=== PATIENT | female | born 1980 | race Two or more races ===

== ENCOUNTER 2023-04-17 14:42 | Emergency (ER) | payer OTHER ==
[2023-04-17 16:00] LABS: CORONAVIRUS 229E-RESP PCR NOT DETECTED; CORONAVIRUS HKU1-RESP PCR NOT DETECTED; CORONAVIRUS NL63-RESP PCR NOT DETECTED; CORONAVIRUS OC43-RESP PCR NOT DETECTED; HUMAN METAPNEUMOVIRUS NOT DETECTED; INFLUENZA A- RESP PCR PANEL NOT DETECTED; RHINOVIRUS/ENTEROVIRUS DETECTED; SARS-CoV-2 -RESP PCR PANEL NOT DETECTED
[2023-04-17 16:01] LABS: B. PARAPERTUSSIS- RESP PCR PAN NOT DETECTED; B. PERTUSSIS- RESP PCR PANEL NOT DETECTED; C. PNEUMONIAE- RESP PCR PANEL NOT DETECTED; INFLUENZA B - RESP PCR PANEL NOT DETECTED; M. PNEUMONIAE- RESP PCR PANEL NOT DETECTED; PARAINFLUENZA VIRUS 1 NOT DETECTED; PARAINFLUENZA VIRUS 2 NOT DETECTED; PARAINFLUENZA VIRUS 3 NOT DETECTED; PARAINFLUENZA VIRUS 4 NOT DETECTED; RSV- RESP PCR PANEL NOT DETECTED
[2023-04-17] MEDS ORDERED: DEXAMETHASONE 10 MG/ML VIAL PO STA (16:07)
[2023-04-17] MEDS ORDERED: CHERRY SYRUP 10 ML UDC PO ONE (16:07)
--- NOTE | 2023-04-17 16:10 | ED Physician Documentation ---
PD HPI HEENT - Stated complaint Stated Complaint: EAR PX,RINGING,GARG,NAUSEA - Chief complaint Chief Complaint: General - History obtained from History obtained from: Patient - History of Present Illness Timing - onset: How many days ago (5) Timing - duration: Days (5) Timing - details: Gradual onset, Still present Location: Right ear, Sinuses, Throat Improves: Medication Worsens: Swalllowing Associated symptoms: Fever, Congestion, Rhinorrhea, Headache, Cough Similar symptoms before: Diagnosis (COVID) Recently seen: Not recently seen - Additional information Additional information: Previously well 43-year-old Judith Plummer has developed a cough congestion and sore throat. She had symptoms beginning about 5 days ago and she has now had worsening ear pain on the right side as well as a sore throat worse on the right. She is having some trouble swallowing even. She is to have dry cough. She had symptoms similar to this when she had COVID. Review of Systems Constitutional: reports: Chills. denies: Fever Eyes: denies: Decreased vision, Photophobia Ears: reports: Loss of hearing, Ear pain, Tinnitus/ringing Nose: reports: Rhinorrhea / runny nose, Congestion Throat: reports: Sore throat Cardiac: denies: Chest pain / pressure, Palpitations Respiratory: reports: Cough. denies: Dyspnea GI: denies: Nausea, Vomiting, Constipation, Diarrhea : denies: Dysuria, Frequency PD PAST MEDICAL HISTORY - Present Medications Home Medications: Ambulatory Orders Medication Instructions Recorded Confirmed Amox/Clav 875/125 [Augmentin] 1 each PO Q12H #20 tablet 04/17/23 - Allergies Allergies/Adverse Reactions: Allergies Allergy/AdvReac Type Severity Reaction Status Date / Time Penicillins Allergy Rash Verified 04/17/23 14:57 PD ED PE NORMAL - Vitals Vital signs reviewed: Yes (hypertensive mild ) - General General: Alert and oriented X 3, No acute distress, Well developed/nourished - HEENT HEENT: Atraumatic, PERRL, EOMI, Other (The right TM is inflamed and blistered. ) - Neck Neck: Supple, no meningeal sign, No bony TTP - Cardiac Cardiac: RRR, No murmur - Respiratory Respiratory: No respiratory distress, Clear bilaterally - Abdomen Abdomen: Soft, Non tender - Back Back: No CVA TTP, No spinal TTP - Derm Derm: Normal color, Warm and dry, No rash - Extremities Extremities: No deformity, No edema - Neuro Neuro: Alert and oriented X 3, wire straightener 2-12 intact, No motor deficit, No sensory deficit, Normal speech Eye Opening: Spontaneous Motor: Obeys Commands Verbal: Oriented GCS Score: 15 - Psych Psych: Normal mood, Normal affect Results - Vitals Vitals: Vital Signs - 24 hr 04/17/23 14:57 Temperature 36.6 C Heart Rate 81 Respiratory 20 Rate Blood Pressure 134/81 H O2 Saturation 99 Oxygen O2 Source Room air - Labs Labs: Laboratory Tests 04/17/23 15:05 Nasal Adenovirus (PCR) NOT DETECTED Nasal B. parapertussis DNA (PCR) NOT DETECTED Nasal Coronavir 229E PCR NOT DETECTED Nasal Coronavir HKU1 PCR NOT DETECTED Nasal Coronavir NL63 PCR NOT DETECTED Nasal Coronavir OC43 PCR NOT DETECTED Nasal Enterovir/Rhinovir PCR DETECTED A Nasal Influenza B PCR NOT DETECTED Nasal Influenza A PCR NOT DETECTED Nasal Parainfluen 1 PCR NOT DETECTED Nasal Parainfluen 2 PCR NOT DETECTED Nasal Parainfluen 3 PCR NOT DETECTED Nasal Parainfluen 4 PCR NOT DETECTED Nasal RSV (PCR) NOT DETECTED Nasal B.pertussis DNA PCR NOT DETECTED Nasal C.pneumoniae (PCR) NOT DETECTED [place] Human Metapneumo PCR NOT DETECTED Nasal M.pneumoniae (PCR) NOT DETECTED Nasal SARS-CoV-2 (PCR) NOT DETECTED PD Medical Decision Making - ED course Complexity details: considered differential, d/w patient Reviewed Lab Results: We obtained a nasal swab for 23 viruses and found that the swab was positive for the DNA of rhinovirus.My interpretation of this is the patient is likely suffering from the effects of rhinovirus ED course: 43-year-old female presents to the emergency department with upper respiratory tract symptoms is positive for Rhinovirus she has had a change in her condition to having worsening right ear pain and on examination has an obvious otitis on the right. This appears to be a secondary bacterial infection and this is treated. She is administered dexamethasone 10 mg orally we will place her on a course of Augmentin. Departure - Departure Disposition: 01 Home, Self Care Clinical Impression: Rhinovirus infection Otitis media Qualifiers: Otitis media type: suppurative Chronicity: acute Laterality: right Recurrence: not specified as recurrent Spontaneous tympanic membrane rupture: without spontaneous rupture Qualified Code(s): H66.001 - Acute suppurative otitis media without spontaneous rupture of ear drum, right ear Condition: Stable Instructions: ED Otitis Media Acute Adult, Cold Virus Follow-Up: AMY CHEN MD [Primary Care Provider] - Prescriptions: Amox/Clav 875/125 [Augmentin] 1 each PO Q12H #20 tablet Comments: Judith, today looks like you have rhinovirus or the common cold virus. There is a complicating secondary infection with a middle ear infection on the right side. We have given you a dose of dexamethasone today which should aid in the draining of the ear and should improve your symptoms in general over the next 12 hours. I have E scribed some Augmentin to the [facility] in [place]. This is an antibiotic you will need to take twice a day for 10 days to treat the middle ear infection.
[2023-04-17 16:38] VITALS: BP 111/63
== END 2023-04-17 16:33 | disposition home or self-care (01) ==
LOC: ED 14:42
DX: B34.8 Other viral infections of unspecified site (principal); H66.001 Acute suppurative otitis media without spontaneous rupture of ear drum, right ear; Z20.822 Contact with and (suspected) exposure to COVID-19
CPT/HCPCS: 87633; 99283; A9270

== ENCOUNTER 2023-10-20 07:12 | Outpatient (CLI) | payer OTHER ==
--- NOTE | 2023-10-22 11:42 | MRI Report ---
PROCEDURE: LUMBAR SPINE WO INDICATIONS: LOW BACK PAIN TECHNIQUE: Noncontrast sagittal T1 spin echo and T2 fast echo, sagittal STIR, axial T1 and T2 fast spin echo thr ough the lumbar spine. In cases with scoliosis, additional coronal T2 fast spin echo may be performe d. COMPARISON: None. FINDINGS: Image quality: Excellent. Alignment and Curvature: There is normal bony alignment. Bone Marrow: Marrow is of normal overall signal. No acute vertebral body compression fractures. Spinal Cord: Conus medullaris terminates at the L2-3 level. Visualized cord demonstrates normal sig nal and size. Paraspinous Soft Tissues: No paravertebral masses. T12-L1: Normal in appearance. L1-L2: Normal in appearance. L2-L3: Normal in appearance. L3-L4: Very mild broad-based disc bulge and early disc desiccation. L4-L5: Asymmetric disc bulge along the left central, subarticular and extra foraminal space. Mild f acet hypertrophy. Minimal left neural foraminal narrowing. Mild epidural lipomatosis. Disc desiccatio n. L5-S1: Broad-based disc bulge. Mild facet hypertrophy and arthrosis. Mild epidural lipomatosis. Di sc desiccation. Mild to moderate left neural foraminal narrowing. IMPRESSION: Lower lumbar degenerative disc disease and facet hypertrophy, without severe spinal canal or neural f oraminal narrowing. Reviewed by: Bradley Kenney MD on 10/22/2023 11:40 AM PST Approved by: Bradley Kenney MD on 10/22/2023 11:40 AM PST Station ID: [id number]
== END 2023-10-20 07:13 | disposition home or self-care (01) ==
LOC: DI 07:12
PROVIDERS: ATTEND Student in an Organized Health Care Education/Training Program
DX: M47.816 Spondylosis without myelopathy or radiculopathy, lumbar region (principal); M51.36 Other intervertebral disc degeneration, lumbar region